=== PATIENT | female | born 1980 | race Caucasian/White ===

== ENCOUNTER 2018-06-26 13:17 | Inpatient (IN) | payer MEDICAID ==
[~2018-06-26] VITALS: Ht 162.6 cm; Wt 63.5 kg
[2018-06-26] MEDS ORDERED: ZOLPIDEM TARTRATE 10 MG TABLET PO PRN (16:45)
[2018-06-26 17:40] VITALS: BP 152/76
[2018-06-26] MEDS ORDERED: ONDANSETRON HCL 4 MG TABLET PO PRN (18:15)
[2018-06-26] MEDS ORDERED: IBUPROFEN 400 MG TABLET PO PRN (18:15)
[2018-06-26] MEDS ORDERED: DOCUSATE SODIUM 100 MG CAPSULE PO PRN (18:15)
[2018-06-26] MEDS ORDERED: LOPERAMIDE HCL 2 MG CAPSULE PO PRN (18:15)
[2018-06-26] MEDS ORDERED: PETROLATUM,WHITE 71 GM JELLY TP PRN (18:15)
[2018-06-26] MEDS ORDERED: MAGNESIUM HYDROXIDE SUSPENSION 30 ML UDCUP PO PRN (18:15)
[2018-06-26] MEDS ORDERED: MAG HYDROX/AL HYDROX/SIMETH ES 30 ML SUSPENSION UDCUP PO PRN (18:15)
[2018-06-26] MEDS ORDERED: ACETAMINOPHEN 325 MG TABLET PO PRN (18:15)
[2018-06-26] MEDS ORDERED: CloNIDine HCL 0.1 MG TABLET PO PRN (18:15)
[2018-06-26] MEDS ORDERED: GuaiFENesin/D-METHORPHAN [SUGAR-FREE] 200-20MG/10 ML SYRUP UDCUP PO PRN (18:15)
[2018-06-26] MEDS ORDERED: PNEUMOCOCCAL VACCINE POLYVALENT 0.5 ML VIAL [PPSV23] IM ONE (18:30)
[2018-06-27 00:38] VITALS: BP 132/79
[2018-06-27 08:29] VITALS: BP 136/82
[2018-06-27 08:51] LABS: BASOPHILS % (AUTO) 0.6 % (0.0-2.0); EOSINOPHILS % (AUTO) 2.4 % (1.0-6.0); HEMATOCRIT 43.7 % (36-46); HEMOGLOBIN 14.8 g/dL (12.0-16.0); MEAN CORPUSCULAR HEMOGLOBIN 31.8 pg (26.0-34.0); MEAN CORPUSCULAR HGB CONC 33.9 G/dL (31.0-37.0); MEAN CORPUSCULAR VOLUME 94 fL (80-100); MONOCYTES # (AUTO) 0.7 K/uL (0.1-1.0); MONOCYTES % (AUTO) 6.7 % (2.0-9.0); NEUTROPHILS # (AUTO) 7.2 K/uL (1.8-7.7); NEUTROPHILS % (AUTO) 70.3 % (40.0-70.0); PLATELET COUNT (AUTO) 355 K/uL (150-450); RED BLOOD CELL COUNT(AUTO) 4.67 MIL/uL (4.00-5.20); RED CELL DISTRIBUTION WIDTH 12.5 % (11.5-14.5)
[2018-06-27 09:29] LABS: ALANINE AMINOTRANSFERASE 32 U/L (12-78); ALBUMIN 3.5 g/dL (3.4-5.0); ALKALINE PHOSPHATASE 70 U/L (46-116); ANION GAP 9 mmol/L (8-16); ASPARTATE AMINOTRANSFERASE 26 U/L (15-37); BILIRUBIN,TOTAL 0.2 mg/dL (0.1-1.0); CALCIUM, TOTAL 9.3 mg/dL (8.8-10.5); CARBON DIOXIDE 25 mmol/L (22-29); CHLORIDE 103 mmol/L (98-107); CHOL/HDL RATIO 2.7 (3.9-5.7); CHOLESTEROL 136 mg/dL (131-200); CREATININE 0.61 mg/dL (0.60-1.30); FREE T4 (FREE THYROXINE) 1.06 ng/dL (0.76-1.46); GLOMERULAR FILTR. RATE CALC > 60 mL/min (>60); GLUCOSE,RANDOM 218 mg/dL (70-110); HCG,QUANTITATIVE 1 mIU/mL (0-6); HDL CHOLESTEROL 50 mg/dL (40-60); LDL CHOL (CALC.) 43 mg/dL (0-130); SODIUM SERUM 137 mmol/L (136-145); THYROID STIMULATING HORMONE 1.68 uIU/mL (0.36-3.74); TOTAL PROTEIN, SERUM 6.9 g/dL (6.4-8.2); TRIGLYCERIDES 216 mg/dL (15-150); UREA NITROGEN, BLOOD 16 mg/dL (7-18)
[2018-06-27] MEDS ORDERED: BENZOCAINE 10% 7 GM GEL TP PRN (09:45)
[2018-06-27] MEDS ORDERED: MENTHOL/CAMPHOR/DIMETH/PHENOL 10 GM OINTMENT TP PRN (09:45)
[2018-06-27] MEDS ORDERED: DOCOSANOL 10% 2 GM CREAM TP PRN (09:45)
[2018-06-27] MEDS: LORazepam 2 MG TABLET PO PRN ×2 (12:19→17:13)
[2018-06-27 16:25] VITALS: BP 124/77
[2018-06-27] MEDS: OLANZapine 5 MG TABLET PO SCH (21:34)
[2018-06-28 07:00] VITALS: BP 128/82
[2018-06-28 08:27] VITALS: BP 133/91
[2018-06-28] MEDS: FLUoxetine HCL 20 MG CAPSULE PO SCH (08:41)
[2018-06-28 15:58] VITALS: BP 130/89
[2018-06-28] MEDS: LORazepam 2 MG TABLET PO PRN (16:52)
[2018-06-28] MEDS: HALOPERIDOL 5 MG TABLET PO PRN (16:53)
[2018-06-28] MEDS ORDERED: HALOPERIDOL LACTATE 5 MG/ML VIAL ONE (18:04)
[2018-06-28] MEDS ORDERED: LORazepam 2 MG/ML VIAL IM ONE (18:15)
[2018-06-28] MEDS ORDERED: DiphenhydrAMINE HCL 50 MG/ML VIAL IM ONE (18:15)
[2018-06-28] MEDS ORDERED: HALOPERIDOL LACTATE 5 MG/ML VIAL IM ONE (18:15)
[2018-06-28] MEDS: OLANZapine 5 MG TABLET PO SCH (21:00)
[2018-06-29 04:32] VITALS: BP 126/88
[2018-06-29 08:06] VITALS: BP 134/90
[2018-06-29] MEDS: LORazepam 2 MG TABLET PO PRN ×2 (08:34→16:16)
[2018-06-29] MEDS: FLUoxetine HCL 20 MG CAPSULE PO SCH (08:35)
[2018-06-29] MEDS: HALOPERIDOL 5 MG TABLET PO PRN ×2 (09:49→16:16)
[2018-06-29 17:30] VITALS: BP 128/66
[2018-06-29] MEDS: OLANZapine 5 MG TABLET PO SCH (20:06)
[2018-06-30 07:19] VITALS: BP 127/70
[2018-06-30 08:15] VITALS: BP 128/80
[2018-06-30] MEDS: FLUoxetine HCL 20 MG CAPSULE PO SCH (08:21)
[2018-06-30] MEDS: HALOPERIDOL 5 MG TABLET PO PRN (17:35)
[2018-06-30] MEDS: LORazepam 2 MG TABLET PO PRN (17:35)
[2018-06-30 19:09] VITALS: BP 116/89
[2018-06-30] MEDS: OLANZapine 5 MG TABLET PO SCH (20:52)
[2018-07-01 05:35] VITALS: BP 127/90
[2018-07-01] MEDS: FLUoxetine HCL 20 MG CAPSULE PO SCH (08:15)
[2018-07-01] MEDS: HALOPERIDOL 5 MG TABLET PO PRN ×2 (08:15→16:46)
[2018-07-01] MEDS: LORazepam 2 MG TABLET PO PRN ×2 (08:15→16:46)
[2018-07-01] MEDS: ALBUTEROL SULFATE HFA 90 MCG/PUFF 8 GM INHALER IH PRN (08:35)
[2018-07-01 09:23] VITALS: BP 132/80
[2018-07-01 18:58] VITALS: BP 110/66
[2018-07-01] MEDS: OLANZapine 5 MG TABLET PO SCH (20:27)
[2018-07-02 06:15] VITALS: BP 127/80
[2018-07-02 08:17] VITALS: BP 118/75
[2018-07-02] MEDS: LORazepam 2 MG TABLET PO PRN ×2 (09:29→16:26)
[2018-07-02] MEDS: HALOPERIDOL 5 MG TABLET PO PRN ×2 (09:29→16:26)
[2018-07-02] MEDS: FLUoxetine HCL 20 MG CAPSULE PO SCH (09:30)
[2018-07-02] MEDS ORDERED: HALOPERIDOL LACTATE 5 MG/ML VIAL ONE (10:26)
[2018-07-02] MEDS ORDERED: DiphenhydrAMINE HCL 50 MG/ML VIAL ONE (10:27)
[2018-07-02] MEDS ORDERED: LORazepam 2 MG/ML VIAL ONE (10:29)
[2018-07-02] MEDS ORDERED: LORazepam 2 MG/ML VIAL IM ONE (10:30)
[2018-07-02] MEDS ORDERED: HALOPERIDOL LACTATE 5 MG/ML VIAL IM ONE (10:30)
[2018-07-02] MEDS ORDERED: DiphenhydrAMINE HCL 50 MG/ML VIAL IM ONE (10:30)
[2018-07-02 11:10] VITALS: BP 129/66
[2018-07-02 16:00] VITALS: BP 108/61
[2018-07-02] MEDS: OLANZapine 10 MG TABLET PO SCH (20:11)
[2018-07-03 05:46] VITALS: BP 135/79
[2018-07-03 08:23] VITALS: BP 122/68
[2018-07-03] MEDS: FLUoxetine HCL 20 MG CAPSULE PO SCH (08:36)
[2018-07-03] MEDS: LORazepam 2 MG TABLET PO PRN ×2 (08:36→16:42)
[2018-07-03] MEDS: HALOPERIDOL 5 MG TABLET PO PRN (08:36)
[2018-07-03] MEDS: ALBUTEROL SULFATE HFA 90 MCG/PUFF 8 GM INHALER IH PRN (08:36)
[2018-07-03 16:58] VITALS: BP 111/60
[2018-07-03] MEDS: OLANZapine 10 MG TABLET PO SCH (21:00)
[2018-07-04 04:40] VITALS: BP 130/71
[2018-07-04 08:23] VITALS: BP 129/76
[2018-07-04] MEDS: FLUoxetine HCL 20 MG CAPSULE PO SCH (08:23)
[2018-07-04] MEDS: LORazepam 2 MG TABLET PO PRN ×2 (08:23→17:24)
[2018-07-04] MEDS: OMEGA-3/DHA/EPA/FISH OIL 1,000 MG CAPSULE PO SCH (08:23)
[2018-07-04] MEDS: HALOPERIDOL 5 MG TABLET PO PRN ×2 (08:24→17:24)
[2018-07-04 17:13] VITALS: BP 122/72
[2018-07-04] MEDS: OLANZapine 10 MG TABLET PO SCH (20:57)
[2018-07-05 05:35] VITALS: BP 128/76
[2018-07-05 08:23] VITALS: BP 123/77
[2018-07-05] MEDS: FLUoxetine HCL 20 MG CAPSULE PO SCH (08:24)
[2018-07-05] MEDS: LORazepam 2 MG TABLET PO PRN (08:24)
[2018-07-05] MEDS: OMEGA-3/DHA/EPA/FISH OIL 1,000 MG CAPSULE PO SCH (08:24)
[2018-07-05] MEDS: HALOPERIDOL 5 MG TABLET PO PRN (08:25)
[2018-07-05 17:23] VITALS: BP 125/72
[2018-07-05] MEDS: ALBUTEROL SULFATE HFA 90 MCG/PUFF 8 GM INHALER IH PRN (17:41)
[2018-07-05] MEDS: OLANZapine 10 MG TABLET PO SCH (21:04)
[2018-07-06 08:00] VITALS: BP 137/72
[2018-07-06 08:03] VITALS: BP 137/72
[2018-07-06 08:08] LABS: APPEARANCE,URINE CLOUDY (CLEAR); BILIRUBIN,URINE NEGATIVE (NEGATIVE); GLUCOSE, URINE (UA) NEGATIVE (NEGATIVE); KETONES,URINE NEGATIVE (NEGATIVE); LEUKOCYTE ESTERASE ,URINE LARGE (NEGATIVE); NITRATE,URINE NEGATIVE (NEGATIVE); OCCULT BLOOD,URINE TRACE (NEGATIVE); PROTEIN,URINE NEGATIVE (NEGATIVE); UROBILINOGEN,URINE 0.2 mg/dL (<=1.0)
[2018-07-06 08:21] LABS: BACTERIA,URINE Few /HPF (None Seen); SQUAMOUS EPITHELIAL CELL,UR Few /LPF (None Seen)
[2018-07-06] MEDS: FLUoxetine HCL 20 MG CAPSULE PO SCH (08:57)
[2018-07-06] MEDS: OMEGA-3/DHA/EPA/FISH OIL 1,000 MG CAPSULE PO SCH (08:57)
[2018-07-06] MEDS: HALOPERIDOL 5 MG TABLET PO PRN ×2 (10:16→18:39)
[2018-07-06] MEDS: LORazepam 2 MG TABLET PO PRN (10:16)
[2018-07-06] MEDS: CIPROFLOXACIN HCL 500 MG TABLET PO SCH (16:42)
[2018-07-06 17:42] VITALS: BP 123/67
[2018-07-06] MEDS: OLANZapine 10 MG TABLET PO SCH (20:42)
[2018-07-07 05:24] VITALS: BP 125/70
[2018-07-07] MEDS: HALOPERIDOL 5 MG TABLET PO PRN ×2 (08:13→16:56)
[2018-07-07] MEDS: CIPROFLOXACIN HCL 500 MG TABLET PO SCH ×2 (08:14→16:36)
[2018-07-07] MEDS: FLUoxetine HCL 20 MG CAPSULE PO SCH (08:14)
[2018-07-07] MEDS: OMEGA-3/DHA/EPA/FISH OIL 1,000 MG CAPSULE PO SCH (08:14)
[2018-07-07 08:43] VITALS: BP 118/72
[2018-07-07] MEDS: NICOTINE 14 MG/24 HOUR PATCH TD PRN (10:02)
[2018-07-07 16:34] VITALS: BP 117/81
[2018-07-07] MEDS: ALBUTEROL SULFATE HFA 90 MCG/PUFF 8 GM INHALER IH PRN (18:46)
[2018-07-07] MEDS: OLANZapine 10 MG TABLET PO SCH (20:45)
[2018-07-08 06:43] VITALS: BP 128/68
[2018-07-08 08:30] VITALS: BP 131/84
[2018-07-08] MEDS: CIPROFLOXACIN HCL 500 MG TABLET PO SCH (08:43)
[2018-07-08] MEDS: NICOTINE 14 MG/24 HOUR PATCH TD PRN (08:43)
[2018-07-08] MEDS: FLUoxetine HCL 20 MG CAPSULE PO SCH (08:43)
[2018-07-08] MEDS: OMEGA-3/DHA/EPA/FISH OIL 1,000 MG CAPSULE PO SCH (08:43)
[2018-07-08] MEDS ORDERED: OMEG-135 PO (11:18)
[2018-07-08] MEDS ORDERED: CIPR-278 PO (11:19)
[2018-07-08] MEDS ORDERED: FLUO-191 PO (11:21)
[2018-07-08] MEDS ORDERED: OLAN10TA3 PO (11:21)
== END 2018-07-08 12:55 | disposition home or self-care (01) | DRG 753 ==
LOC: B3A 16:46
PROVIDERS: ADMIT Psychiatry & Neurology Psychiatry; ATTEND Psychiatry & Neurology Psychiatry
DX: F31.64 Bipolar disorder, current episode mixed, severe, with psychotic features (principal); E32.8 Other diseases of thymus; R45.851 Suicidal ideations; F29 Unspecified psychosis not due to a substance or known physiological condition; R45.87 Impulsiveness; F41.9 Anxiety disorder, unspecified; E11.9 Type 2 diabetes mellitus without complications; E78.5 Hyperlipidemia, unspecified; F10.10 Alcohol abuse, uncomplicated; F19.90 Other psychoactive substance use, unspecified, uncomplicated; J44.9 Chronic obstructive pulmonary disease, unspecified; G47.00 Insomnia, unspecified; R45.84 Anhedonia; N39.0 Urinary tract infection, site not specified; Z59.0 Homelessness; Z91.19 Patient's noncompliance with other medical treatment and regimen; Z91.5 Personal history of self-harm
CPT/HCPCS: 83036; 84439; 84443; 87081; 87086; 90686; 90732; J1200; J1630; J2060; J3535

== ENCOUNTER 2018-09-05 21:45 | Emergency (ER) | payer MEDICAID, OTHER ==
[~2018-09-05] VITALS: Ht 162.6 cm; Wt 72.7 kg
[~2018-09-05 21:45] MED LIST: CIPR-278 PO; FLUO-191 PO; OLAN10TA3 PO; OMEG-135 PO
[2018-09-05] MEDS ORDERED: SIMV-260 PO (22:13)
[2018-09-05] MEDS ORDERED: METF-960 PO (22:13)
[2018-09-05] MEDS ORDERED: DIPH25 PO (22:13)
[2018-09-05 22:19] LABS: GLUCOSE,POINT OF CARE 140 MG/DL (70-110)
[2018-09-05] MEDS ORDERED: AZITHROMYCIN 250 MG TABLET PO ONE (23:30)
[2018-09-05] MEDS ORDERED: ALBUTEROL SULFATE 2.5 MG/0.5 ML NEB SOLUTION NEB ONE (23:30)
[2018-09-05] MEDS ORDERED: IPRATROPIUM BROMIDE 0.5 MG/2.5 ML NEB SOLUTION NEB ONE (23:30)
[2018-09-06 00:07] VITALS: BP 129/87
== END 2018-09-06 00:11 | disposition home or self-care (01) ==
LOC: EMS 21:53
DX: J45.909 Unspecified asthma, uncomplicated (principal); E11.9 Type 2 diabetes mellitus without complications; E78.00 Pure hypercholesterolemia, unspecified; F41.9 Anxiety disorder, unspecified; F20.9 Schizophrenia, unspecified; F17.210 Nicotine dependence, cigarettes, uncomplicated; Z88.0 Allergy status to penicillin; Z79.84 Long term (current) use of oral hypoglycemic drugs
CPT/HCPCS: 94640

== ENCOUNTER 2018-09-07 00:07 | Emergency (ER) | payer OTHER ==
[~2018-09-07] VITALS: Ht 162.6 cm; Wt 63.6 kg
[~2018-09-07 00:07] MED LIST changes: +DIPH25 PO; +METF-960 PO; +SIMV-260 PO
[2018-09-07 00:49] VITALS: BP 131/86
[2018-09-07 01:03] LABS: GLUCOSE,POINT OF CARE 150 MG/DL (70-110)
== END 2018-09-07 02:30 | disposition left against medical advice (07) ==
LOC: EMS 00:09
DX: M25.531 Pain in right wrist (principal); Z53.21 Procedure and treatment not carried out due to patient leaving prior to being seen by health care provider